=== PATIENT | female | born 1965 ===

== ENCOUNTER 2018-08-18 19:55 | Emergency (ER) | payer BC ==
[2018-08-18 19:56] VITALS: BMI 36.6
--- NOTE | 2018-08-18 20:09 | ED PDOC ---
Arrival/HPI - General Time Seen by Provider: 08/18/18 20:01 Historian: Patient - History of Present Illness Narrative History of Present Illness (Text): 08/18/18 20:07 53 y/o with chronic back pain and asthma presents to the Emergency department c/o left shoulder and arm pain x 3 weeks. Worse with long work days, improved when lifting the arm over the head. Works as a transcription typist. Associated intermittent paresthesias in the left fingertips and left sided neck pain. Does not have a leveler. Has been taking tylenol for pain. Denies fever, chills, palp itations, SOB, chest pain, cough, congestion, numbness, weakness, paresthesias, trauma/injury, nausea, vomiting, abdominal pain, or any other associated symptoms. Past Medical History - Provider Review Nursing Documentation Reviewed: Yes - Cardiac Hx Cardiac Disorders: No - Pulmonary Hx Respiratory Disorders: Yes Hx Asthma: Yes (NEVER HOSPITALIZED) - Neurological Hx Neurological Disorder: No - HEENT Hx HEENT Disorder: No - Renal Hx Renal Disorder: No - Endocrine/Metabolic Hx Endocrine Disorders: No - Hematological/Oncological Hx Blood Disorders: No - Integumentary Hx Dermatological Disorder: Yes - Musculoskeletal/Rheumatological Hx Musculoskeletal Disorders: Yes (BACK INJURY S/P -2014) Hx Back Pain: Yes Hx Herniated Disk: Yes (LUMBAR) Other/Comment: RIGHT SHOULDER ROTATOR CUFF REPAIR - Gastrointestinal Hx Gastrointestinal Disorders: No - Genitourinary/Gynecological Hx Genitourinary Disorders: Yes (PELVIC PAIN URINARY FREQUENCY) - Psychiatric Hx Psychophysiologic Disorder: No Hx Substance Use: No - Surgical History Hx Orthopedic Surgery: Yes (RIGHT SHOULDER) Other/Comment: D&C HYSTERSCOPY/ MYOSURE - Anesthesia Hx Anesthesia: Yes Hx Anesthesia Reactions: No Hx Malignant Hyperthermia: No - Suicidal Assessment Feels Threatened In Home Enviroment: No Family/Social History - Physician Review Nursing Documentation Reviewed: Yes Family/Social History: No Known Family HX Smoking Status: Former Smoker Hx Alcohol Use: Yes (SOCIALLY ON OCCASION) Hx Substance Use: No Allergies/Home Meds Allergies/Adverse Reactions: Allergies No Known Allergies Allergy (Verified 08/18/18 20:09) Home Medications: Home Meds Medication Instructions Recorded Confirmed Albuterol HFA [Ventolin HFA 90 2 puff IH BID 10/08/16 08/18/18 mcg/actuation (8 g)] Review of Systems - Review of Systems Constitutional: Normal Eyes: Normal. absent: Vision Changes ENT: Normal. absent: Sore Throat, Sinus Congestion Respiratory: Normal. absent: SOB, Cough Cardiovascular: Normal. absent: Chest Pain Gastrointestinal: Normal. absent: Abdominal Pain, Stool Changes, Nausea, Vomiting, Appetite Changes Genitourinary Female: Normal. absent: Dysuria, Frequency Musculoskeletal: Other (left arm pain, left shoulder pain). absent: Back Pain, Neck Pain Skin: Normal. absent: Rash Neurological: Normal. absent: Headache, Dizziness Physical Exam Vital Signs Reviewed: Yes Temperature: Afebrile Blood Pressure: Normal Pulse: Regular Respiratory Rate: Normal Appearance: Positive for: Well-Appearing, Non-Toxic, Comfortable Pain Distress: None Mental Status: Positive for: Alert and Oriented X 3 - Systems Exam Head: Present: Atraumatic, Normocephalic Pupils: Present: PERRL Extroacular Muscles: Present: EOMI Conjunctiva: Present: Normal Mouth: Present: Moist Mucous Membranes Neck: Present: Normal Range of Motion, Paraspinal Tenderness (mild left). No: Meningeal Signs Respiratory/Chest: Present: Clear to Auscultation, Good Air Exchange. No: Respiratory Distress, Accessory Muscle Use Cardiovascular: Present: Regular Rate and Rhythm, Normal S1, S2, Peripheal Pulses Present Back: Present: Normal Inspection Upper Extremity: Present: Normal Inspection, Normal ROM, NORMAL PULSES, Tenderness (left upper lateral arm, mild), Neurovascularly Intact, Capillary Refill < 2s. No: Cyanosis, Edema, Temperature Abnormalties Lower Extremity: Present: Normal ROM Neurological: Present: GCS=15, CN II-XII Intact, Speech Normal, Motor Func Grossly Intact, Normal Sensory Function, Gait Normal Skin: Present: Warm, Dry, Normal Color. No: Rashes Psychiatric: Present: Alert, Oriented x 3, Normal Insight, Normal Concentration, Normal Affect, Normal Mood Medical Decision Making ED Course and Treatment: 08/18/18 20:06 Initial Plan: * CBC, CMP * Coags * Mg, Phos * Cardiac Iso * EKG * CXR * Cervical Spine XR * Left arm venous duplex * Toradol EKG shows sinus bradycardia at 55, Normal intervals, No STEMI or other signs of acute ischemia; troponin negative 08/18/18 22:00 Bloodwork reviewed, unremarkable CXR shows no active disease Cervical spine XR shows straightening of lordotic curve with spondylotic changes at C3-4 and C4-5 Left arm venous duplex prelim read negative for DVT STEVE heart score 0, low risk for cardiac event Pt reports improvement in symptoms with medication. Advised orthopedic, neurology, and PMD followup. Diagnostic testing results and plan of care discussed with patient. Strict instructions given regarding prescription use, importance of followup, and signs /symptoms to return to ER including chest pain, SOB, weakness, or any other new/worsening symptoms. Pt verbalized understanding of discussion. Patient is A&Ox3, ambulating with steady gait, with vital signs stable for discharge. - Lab Interpretations Lab Results: 08/18/18 21:00 08/18/18 21:00 Lab Results 08/18/18 21:00: Sodium 140, Potassium 3.9, Chloride 103, Carbon Dioxide 31, Anion Gap 10, BUN 20, Creatinine 0.8, Est GFR ( Amer) > 60, Est GFR (Non-Af Amer) > 60, Random Glucose 108, Calcium 8.7, Magnesium 2.1, Total Bilirubin 0.4, AST 31, ALT 27, Alkaline Phosphatase 87, Lactate Dehydrogenase 430, Total Creatine Kinase 72, Troponin I < 0.01, Total Protein 6.7, Albumin 3.9, Globulin 2.8, Albumin/Globulin Ratio 1.4 08/18/18 21:00: PT 11.0, INR 0.99, APTT 34.2 08/18/18 21:00: WBC 8.8, RBC 4.58, Hgb 12.7, Hct 39.0, MCV 85.2, MCH 27.7, MCHC 32.6, RDW 13.0, Plt Count 255, MPV 9.9, Neut % (Auto) 58.9, Lymph % (Auto) 32.4, Elliott % (Auto) 4.4, Eos % (Auto) 4.1, Baso % (Auto) 0.2, Lymph # (Auto) 2.9, Elliott # (Auto) 0.4, Eos # (Auto) 0.4, Baso # (Auto) 0.02, Absolute Neuts (auto) 5.19 I have reviewed the lab results: Yes - EKG Interpretation EKG Interpretation (Text): EKG shows sinus bradycardia at 55 , Normal intervals, No STEMI or other signs of acute ischemia Interpreted by ED Physician: Yes Type: 12 lead EKG Disposition/Present on Arrival - Present on Arrival Any Indicators Present on Arrival: No History of DVT/PE: No History of Uncontrolled Diabetes: No Urinary Catheter: No History of Decub. Ulcer: No - Disposition Have Diagnosis and Disposition been Completed?: Yes Diagnosis: Left arm pain Disposition: HOME/ ROUTINE Disposition Time: 23:40 Patient Plan: Discharge Condition: GOOD Discharge Instructions (ExitCare): Muscle and Bone Pain (DC), Radiculopathy (DC) Additional Instructions: Tylenol as needed for pain Warm compresses, massage Followup with orthopedics within 2 days Followup with neurology within 2 days Followup with primary doctor within 2 days Return to ER with any new/worsening symptoms Referrals: Sammy Cain MD [Staff Provider] - Follow up with primary Saúl Lo MD [Staff Provider] - Follow up with primary [facility] [Outside] - Follow up with primary Forms: [facility] (Kazakh), WORK NOTE
[2018-08-18 20:22] VITALS: RESP 16; TEMP 98.2
[2018-08-18 21:11] LABS: BASO # 0.02 K/mm3 (0.0-2.0); BASO % 0.2 % (0.0-3.0); EOS # 0.4 (0.0-0.7); EOS % 4.1 % (1.5-5.0); HEMOGLOBIN 12.7 g/dL (12.0-16.0); LYMPH # 2.9 (1.2-3.4); LYMPH % 32.4 % (22.0-35.0); MEAN CELL VOLUME 85.2 fl (80.0-105.0); MEAN CORPUSCULAR HEMOGLOBIN 27.7 pg (25.0-35.0); MEAN CORPUSCULAR HGB CONC 32.6 g/dl (31.0-37.0); MEAN PLATELET VOLUME 9.9 fl (7.0-11.0); MONO # 0.4 (0.1-0.6); MONO % 4.4 % (1.0-6.0); RBC 4.58 10^6/uL (3.5-6.1); WHITE BLOOD COUNT 8.8 10^3/uL (4.5-11.0)
[2018-08-18 21:28] LABS: INR 0.99; PARTIAL THROMBOPLASTIN TIME 34.2 Seconds (26.9-38.3)
[2018-08-18 21:41] LABS: ALB/GLOB RATIO 1.4 (1.1-1.8); ALBUMIN 3.9 g/dL (3.0-4.8); ALT/SGPT 27 U/L (7-56); AST/SGOT 31 U/L (14-36); BLOOD UREA NITROGEN 20 mg/dL (7-21); CALCIUM 8.7 mg/dL (8.4-10.5); GFR NON-AFRICAN AMERICAN > 60
[2018-08-18 21:59] LABS: TROPONIN I < 0.01 ng/mL
[2018-08-19 00:31] VITALS: BP 115/76; PULSE 68; O2SAT 100
--- NOTE | 2018-08-19 09:19 | US ---
PROCEDURE: Left upper extremity venous ultrasound HISTORY: Arm pain and swelling. Evaluate for deep venous thrombosis. PHYSICIAN(S): Nain Kovacs MD. FINDINGS: The visualized leftinternal jugular vein is sonographically normal and compressible. No evidence of obstruction or thrombus is seen. The visualized segments of the left subclavian vein are patent with normal waveforms. No sonographic evidence of obstruction or thrombosis is seen. The visualized deep venous system of the proximal leftupper extremity is sonographically normal and compressible. IMPRESSION: 1. No sonographic evidence for deep venous thrombosis in the visualized segments of the left upper extremity.
--- NOTE | 2018-08-19 09:50 | CARD ---
APPROVED REPORT Date of service: 08/18/2018 EKG Measurement Heart [id number] <Conclusion> Sinus bradycardia with sinus arrhythmia Otherwise normal ECG
--- NOTE | 2018-08-19 10:54 | RAD ---
Date of service: 08/18/2018 PROCEDURE: CHEST RADIOGRAPH, 1 VIEW HISTORY: left arm pain COMPARISON: None available. FINDINGS: LUNGS: Clear. PLEURA: No pneumothorax or pleural fluid seen. CARDIOVASCULAR: No aortic atherosclerotic calcification present. Normal. OSSEOUS STRUCTURES: No significant abnormalities. VISUALIZED UPPER ABDOMEN: Normal. OTHER FINDINGS: None. IMPRESSION: No active disease.
--- NOTE | 2018-08-19 11:09 | RAD ---
Date of service: 08/18/2018 PROCEDURE: Cervical Spine Radiographs. HISTORY: Pain. No history of recent/ related trauma provided. COMPARISON: None available. TECHNIQUE: 3 views obtained. FINDINGS: BONES: Alignment maintained. No fracture. Dens Intact. DISC SPACES: Cervical spondylotic changes C3-4, C4-5. SOFT TISSUES: Normal. No prevertebral soft tissue swelling. OTHER FINDINGS: None. IMPRESSION: No acute findings related to/ accounting for the clinical presentation.
== END 2018-08-18 23:55 | disposition home or self-care (01) ==
LOC: ED 19:55
DX: M79.602 Pain in left arm (principal); Z87.891 Personal history of nicotine dependence
CPT/HCPCS: 71045; 72050; 80053; 82550; 83615; 83735; 84484; 85025; 85610; 85730; 93005; 93971; 96374; 99284; J1885